=== PATIENT | female | born 1955 | race Caucasian/White ===

== ENCOUNTER 2017-04-04 06:35 | Inpatient (IN) | payer OTHER ==
[~2017-04-04] VITALS: Ht 160 cm; Wt 68.2 kg
[2017-04-04] VITALS (30 sets, daily range): BP systolic 133–160; BP diastolic 68–87; PULSE 58–89; RESP 12–21; Ht 160 cm; Wt 68.2 kg
[2017-04-04] MEDS ORDERED: ONDANSETRON 4 MG INJ ONE (07:00)
[2017-04-04] MEDS ORDERED: LIDOCAINE 2% (SDV) 5 ML INJ ONE (07:00)
[2017-04-04] MEDS ORDERED: PROPOFOL 20 ML ONE (07:42)
--- NOTE | 2017-04-04 07:55 | HPN ---
Date/Time of Note Date/Time of Note DATE: 04/04/17 TIME: 07:55 Interval H&P Admission Note Pt. seen H&P reviewed: No system changes AUNDREA ALEXANDRE MD Apr 04, 2017 07:55
[2017-04-04] MEDS ORDERED: MIDAZOLAM 1 MG/ML 2 ML INJ ONE (08:05)
[2017-04-04] MEDS ORDERED: TRANEXAMIC ACID 1,000 MG in SOD CHLORIDE 0.9% 100 ML IV ONE (08:30)
[2017-04-04] MEDS ORDERED: CEFAZOLIN 1 GM INJ ONE (08:31)
[2017-04-04] MEDS ORDERED: POLYMYXIN/BACITRACIN 1L IRRIG IRR ONE (09:13)
[2017-04-04] MEDS ORDERED: DEXAMETHASONE 4 MG/ML 1 ML INJ ONE (09:15)
[2017-04-04] MEDS ORDERED: GLYCOPYRROLATE 0.4 MG INJ ONE (10:16)
[2017-04-04] MEDS ORDERED: NEOSTIGMINE 3 MG/3 ML SYRINGE ONE (10:16)
[2017-04-04] MEDS ORDERED: NALOXONE (0.4 MG/ML) INJ IV PRN ×2 (10:30→11:00)
[2017-04-04] MEDS ORDERED: FENTAnyl 50 MCG/ML VIAL IV PRN ×3 (10:30)
[2017-04-04] MEDS ORDERED: EPHEDrine SULFATE 50 MG/5 ML SYG IV PRN (10:30)
[2017-04-04] MEDS ORDERED: DIPHENHYDRAMINE 50 MG INJ IV PRN ×2 (10:30)
[2017-04-04] MEDS ORDERED: MEPERIDINE 25 MG INJ IV PRN (10:30)
[2017-04-04] MEDS ORDERED: hydrALAzine 20 MG INJ IV PRN ×2 (10:30→12:30)
[2017-04-04] MEDS ORDERED: HYDROmorphONE (0.2 MG/ML) 10ML SYG IV PRN ×3 (10:30)
[2017-04-04] MEDS ORDERED: OXYCODONE/ACETAMINOPHEN (5/325) TAB PO PRN ×3 (10:30)
[2017-04-04] MEDS ORDERED: ONDANSETRON 4 MG INJ IV PRN ×2 (10:30)
[2017-04-04] MEDS ORDERED: LABETALOL HCL 20MG INJ IV PRN (10:30)
[2017-04-04] MEDS ORDERED: NA PHOSPHATE/BIPHOS 133 ML ENEMA PR PRN (11:00)
[2017-04-04] MEDS ORDERED: oxyCODONE 5 MG TAB PO PRN ×2 (11:00)
[2017-04-04] MEDS ORDERED: DIPHENHYDRAMINE 50 MG INJ IM PRN (11:00)
[2017-04-04] MEDS ORDERED: DOCUSATE SODIUM 100 MG CAP PO ONE (11:00)
[2017-04-04] MEDS ORDERED: MAGNESIUM HYDROXIDE 30ML CUP PO PRN (11:00)
[2017-04-04] MEDS ORDERED: ASPIRIN (EC) 325 MG TAB PO ONE (11:00)
[2017-04-04] MEDS: ONDANSETRON 4 MG INJ IV SCH ×3 (11:03→23:17)
[2017-04-04] MEDS ORDERED: CEFAZOLIN 1 GM/50 ML (PMX) 50 ML IVPB ONE (11:08)
[2017-04-04] MEDS: HYDROmorphONE 0.2 MG/ML PCA IV SCH (11:16)
[2017-04-04] MEDS: CEFAZOLIN 1 GM/50 ML (PMX) 50 ML IVPB SCH ×2 (11:23→19:46)
--- NOTE | 2017-04-04 11:52 | OPR ---
DATE OF OPERATION: 04/04/2017 PREOPERATIVE DIAGNOSIS: Right knee osteoarthritis. POSTOPERATIVE DIAGNOSIS: Right knee osteoarthritis. OPERATION PERFORMED: Right total knee replacement. SURGEON: John Alexandre MD ANESTHESIA: General endotracheal anesthesia with an adductor canal block. ANESTHESIOLOGIST: Dr. Nolasco ESTIMATED BLOOD LOSS: 100 mL. INDICATIONS FOR PROCEDURE: Ms. Gabriel Regan is a 61-year-old female who has undergone a successful l eft total knee replacement. She has continued to have pain on the right side. She has failed nonop erative treatment and now presents for the above-listed elective procedure. The risks and benefits were discussed, risks including, but not limited to infection, bleeding, blood clots, nerve damage, blood vessel damage, fracture, knee stiffness along with other medical, anesthetic, and surgical com plications were discussed. Informed consent was obtained. DESCRIPTION OF PROCEDURE: The patient's correct extremity was identified in the preoperative area. She was brought back to the operating room where she had preoperative antibiotics. She had a spina l anesthetic. She had general endotracheal anesthesia. Right lower extremity was prepped and drape d in a standard sterile manner. Time out was performed. I then used an Esmarch to exsanguinate the extremity. Tranexamic acid had previously been administered. Then performed a time out. I then m nathaniel an anterior incision for approach to the knee. I went through skin and subcutaneous tissue, mad e a medial parapatellar arthrotomy. I then flexed the knee and made an entry hole in the distal fem ur, took off the distal 8 mm using intramedullary alignment phill. I then used my secondary cutting g uide, marked it at 3 degrees of external rotation. I then made anterior, posterior chamfer cuts wit h a size 2 cutting guide. At this point, I turned my attention to the tibia, used an extramedullary alignment guide, lined it with the anterior crest of the tibia, put my tibial cutting guide at the appropriate level, made my tibial cut. I then checked the flexion and extension gaps which were sym metric with a 13 block. I then trialed using a size 2 tibia, size 2 femur, and a 13 insert. The kn ee went from full extension to full flexion. I did take off medial osteophytes and released some of the MCL off the proximal medial tibia to balance the knee. At this point, I turned my attention to the patella using ____ type cutting guide, cut the patella at the appropriate thickness. I then us ed a 31 symmetric patella. I made the peg holes. I then trialed the patella. The patella tracked well without any external pressure. I then made the peg holes through the femoral trial. I marked the rotation of the tibia. Coinciding with the medial one third of the tibial tubercle. I then pun ched the tibia. I then took out all trial instruments and components, thoroughly irrigated the bony surfaces, cemented a size 2 tibia, size 2 femur. A trial 13 insert was placed as well as the 31 sy mmetric patella was implanted. All implants used were [place] [employer] implants. At this point, o nce the cement hardened, I took out my trial insert, let down the tourniquet, obtained adequate hemo stasis. I then impacted a 13 all poly insert until it locked into place. The knee had full range o f motion and the knee was well balanced in full extension, mid flexion, and full flexion. At this p oint, I put a deep drain in for drainage. I closed the medial parapatellar arthrotomy with interrup kamille #1 Vicryl, subcutaneous tissue was closed with 2-0 Vicryl, the skin with henry. Dry sterile d ressings were applied. The patient was then extubated and transported to recovery in stable conditi on. Her foot was warm with a 2+ dorsalis pedis pulse at the end of the case. Dictated By: JOHN ALEXANDRE MD, RA/AYDEN Conf#: [id number] DID#: [id number]
--- NOTE | 2017-04-04 12:45 | RADRPT ---
PROCEDURE: Right knee radiographs. CLINICAL INDICATION: Right knee pain. Postop. TECHNIQUE: Two views. Frontal and lateral. COMPARISON: No prior studies are available for comparison. FINDINGS: There is a total right knee arthroplasty which appears satisfactory. Anterior skin henry and surg ical drains are noted. There is gas in the soft tissues from the recent surgery. There is no fracture or dislocation. There is no lytic or blastic lesion. IMPRESSION: 1. Satisfactory postoperative appearance of the right knee. RPTAT: QQ .Kushal Oreilly MD, MD Date Time Electronically viewed and signed by .Kushal Oreilly MD, MD on 04/04/2017 12:45 .R/
--- NOTE | 2017-04-04 12:52 | HP ---
DATE OF ADMISSION: 04/04/2017 HISTORY OF PRESENT ILLNESS: The patient is a 61-year-old female with a history of degenerative join t disease, status post left knee total replacement, and a history of left breast mastectomy. The pa kristen continues to have pain in the right knee and was evaluated by Dr. Diehl in surgical consul tation. The patient was brought to the hospital and underwent a right total knee replacement for de generative joint disease of the right knee. Postoperatively the patient experienced significant kailey n and the patient will be admitted for further evaluation and management. PAST MEDICAL HISTORY: Patient denies having any cardiac disease or diabetes. PAST SURGICAL HISTORY: Status post total left knee replacement by Dr. Diehl and status post lef t breast mastectomy. FAMILY HISTORY: Noncontributory. SOCIAL HISTORY: The patient lives at home with the family. The patient denies any tobacco use, den ies any alcohol use, denies any illicit drug use. ALLERGIES: NO KNOWN ALLERGIES. MEDICATIONS ON ADMISSION: No active prescriptions. REVIEW OF SYSTEMS: A 12-point review of systems is negative unless mentioned in the HPI. PHYSICAL ASSESSMENT: GENERAL: Well-developed, well-nourished female, in no acute distress. VITAL SIGNS: Temperature is 98.5, pulse is 64, blood pressure 142/72, respiratory rate 16, oxygen s aturation 99% on room air. HEENT: Head is atraumatic, normocephalic. Pupils are equal, round, reactive to light and accommoda tion. Oral mucosa is pink and moist. NECK: Supple. No cervical lymphadenopathy, no thyromegaly. CHEST: Clear bilaterally. No rhonchi, wheezes or rales noted. CARDIOVASCULAR: Normal S1, S2. No murmurs, gallops or rubs noted. ABDOMEN: Round, soft, nondistended, nontender. Bowel sounds present. There is no guarding or rebo und tenderness. EXTREMITIES: No edema, clubbing or cyanosis. Pulses equal bilaterally at 2+. SKIN: There is no rash or petechiae noted. NEUROLOGIC: The patient is status post right knee surgery, with a dry, clean and intact dressing wi th a drain. Pulses are present bilaterally at 2+. NEUROLOGIC: Patient is awake, alert and oriented x4. No focal deficits noted. ASSESSMENT AND PLAN: 1. Right knee osteoarthritis, status post right total knee replacement. The patient received intra operative antibiotics. Continue Roxicodone and Dilaudid p.r.n. for pain, Zofran p.r.n. for nausea. Will continue the patient on aspirin. 2. Will continue Protonix for peptic ulcer disease prophylaxis and sequential compression device fo r deep venous thrombosis prophylaxis. 3. Continue to follow up orthopedic surgery recommendations. 4. CBC and CMP tomorrow. Further recommendations based on clinical course. Plan of care discussed with Dr. Mathis. Dictated By: DANDRE HENRY MEAL ATTENDANT for BETO MATHIS MD SR/NTS Conf#: [id number] DID#: [id number]
[2017-04-04] MEDS: DEXTROSE 5%-LR 1,000 ML IV SCH ×2 (14:23→23:03)
[2017-04-04] MEDS ORDERED: METOCLOPRAMIDE 10 MG INJ IV PRN (19:00)
[2017-04-04] MEDS: KETOROLAC 30 MG INJ IV PRN (19:46)
[2017-04-04] MEDS: TRIMETHOBENZAMIDE 100 MG/ML VIAL IM PRN (19:47)
[2017-04-05] VITALS: BP 145/76; RESP 18
[2017-04-05] MEDS: KETOROLAC 30 MG INJ IV PRN ×2 (02:38→20:55)
[2017-04-05] MEDS: DEXTROSE 5%-LR 1,000 ML IV SCH ×2 (02:38→17:26)
[2017-04-05 04:00] VITALS: BP 138/78; PULSE 81; RESP 17
[2017-04-05] MEDS: CEFAZOLIN 1 GM/50 ML (PMX) 50 ML IVPB SCH (04:22)
[2017-04-05] MEDS: ONDANSETRON 4 MG INJ IV SCH (04:23)
[2017-04-05 05:03] LABS: ADD SCAN DIFF NO
[2017-04-05 05:15] LABS: BASOPHILS % 0.1 % (0.0-2.0); HEMATOCRIT 37.4 % (37.0-47.0); HEMOGLOBIN 12.7 g/dl (12.0-16.0); LYMPHOCYTES # 0.9 10^3/ul (0.8-2.9); LYMPHOCYTES % 7.6 % (15.0-51.0); MEAN CORPUSCULAR HEMOGLOBIN 26.6 pg (29.0-33.0); MEAN CORPUSCULAR VOLUME 78.2 fl (82.0-101.0); MEAN PLATELET VOLUME 8.5 fl (7.4-10.4); MONOCYTE # 0.4 10^3/ul (0.3-0.9); MONOCYTES % 3.3 % (0.0-11.0); NEUTROPHIL # 10.4 10^3/ul (1.6-7.5); NEUTROPHILS % 88.6 % (39.0-77.0); PLATELET COUNT 263 10^3/UL (140-415); RED BLOOD COUNT 4.78 10^6/ul (4.20-5.40); RED CELL DISTRIBUTION WIDTH 14.6 % (11.5-14.5); WHITE BLOOD COUNT 11.7 10^3/ul (4.8-10.8)
[2017-04-05 05:28] LABS: INR 1.05; PROTIME 13.7 Sec (12.2-14.2); PT RATIO 1.1
[2017-04-05 05:34] LABS: CALCIUM 9.5 mg/dl (8.4-10.2); CREATININE 0.49 mg/dl (0.44-1.00); POTASSIUM 4.2 mmol/L (3.5-5.1)
[2017-04-05] MEDS: ASPIRIN (EC) 325 MG TAB PO SCH (09:00)
[2017-04-05] MEDS: DOCUSATE SODIUM 100 MG CAP PO SCH ×2 (09:00→20:55)
[2017-04-05 09:32] VITALS: BP 164/73; RESP 18
[2017-04-05] MEDS: HYDROmorphONE 0.2 MG/ML PCA IV SCH (11:54)
--- NOTE | 2017-04-05 11:59 | PN ---
Date/Time of Note Date/Time of Note DATE: 04/05/17 TIME: 11:58 Assessment/Plan Lines/Catheters IV Catheter Type (from Nrsg): Peripheral IV Andrew in Place (from Nrsg): Yes Assessment/Plan Assessment/Plan s/p Right Total Knee Replacement POD 1 Stable CPM, Gait training with PT Aspirin, SCD's for DVT prophylaxis SNF eval D/c Andrew Change Dressing tomorrow Subjective 24 Hr Interval Summary Mild pain Exam/Review of Systems Vital Signs Vitals Vital Signs Date Time Temp Pulse Resp B/P Pulse Ox O2 Delivery O2 Flow Rate FiO2 04/05/17 09:32 98.1 72 18 164/73 99 04/05/17 04:00 Room Air 04/04/17 18:00 2.0 Intake and Output 04/04/17 04/04/17 04/05/17 15:00 23:00 07:00 Intake Total 1100 ml 600 ml 1730 ml Output Total 400 ml 950 ml 1300 ml Balance 700 ml -350 ml 430 ml Exam Free Text/Dictation Right Knee Dressing c/d/i Calf soft and nontender Foot warm and well perfused Intact motor and sensory function in toes Results Result Diagram: 04/05/17 0448 04/05/17 0448 AUNDREA ALEXANDRE MD Apr 05, 2017 11:59
[2017-04-05] MEDS: TRIMETHOBENZAMIDE 100 MG/ML VIAL IM PRN (12:02)
[2017-04-05 16:00] VITALS: BP 140/78; PULSE 82; RESP 17
--- NOTE | 2017-04-05 20:45 | PN ---
Date/Time of Note Date/Time of Note DATE: 04/05/17 TIME: 17:40 Assessment/Plan Lines/Catheters IV Catheter Type (from Nrs): Peripheral IV Urinary Cath still in place: Yes Assessment/Plan Assessment/Plan 1. Right knee osteoarthritis, status post right total knee replacement. The patient received intraoperative antibiotics. Continue Roxicodone and Dilaudid p.r.n. for pain, Zofran p.r.n. for nausea. Will continue the patient on aspirin. 2. Will continue Protonix for peptic ulcer disease prophylaxis and sequential compression device for deep venous thrombosis prophylaxis. 3. Continue to follow up orthopedic surgery recommendations. Further recommendations based on clinical course. Plan of care discussed with Dr. Sweeney. Exam/Review of Systems Vital Signs Vitals Vital Signs Date Time Temp Pulse Resp B/P Pulse Ox O2 Delivery O2 Flow Rate FiO2 04/05/17 11:54 18 04/05/17 09:32 98.1 72 164/73 99 04/05/17 04:00 Room Air 04/04/17 18:00 2.0 Intake and Output 04/04/17 04/04/17 04/05/17 15:00 23:00 07:00 Intake Total 1100 ml 600 ml 1730 ml Output Total 400 ml 950 ml 1300 ml Balance 700 ml -350 ml 430 ml Exam Constitutional: alert, well developed Respiratory: clear to auscultation, normal air movement Cardiovascular: nl pulses, regular rate and rhythm Gastrointestinal: non-tender, soft Musculoskeletal: other Extremities: normal pulses Results Result Diagram: 04/05/17 0448 04/05/17 0448 Results 24 hrs Laboratory Tests Test 04/05/17 04:48 White Blood Count 11.7 H Red Blood Count 4.78 Hemoglobin 12.7 Hematocrit 37.4 Mean Corpuscular Volume 78.2 L Mean Corpuscular Hemoglobin 26.6 L Mean Corpuscular Hemoglobin Concent 34.0 Red Cell Distribution Width 14.6 H Platelet Count 263 Mean Platelet Volume 8.5 Neutrophils % 88.6 H Lymphocytes % 7.6 L Monocytes % 3.3 Eosinophils % 0.0 Basophils % 0.1 Nucleated Red Blood Cells % 0.0 Neutrophils # 10.4 H Lymphocytes # 0.9 Monocytes # 0.4 Eosinophils # 0.0 Basophils # 0.0 Nucleated Red Blood Cells # 0.0 Prothrombin Time 13.7 Prothrombin Time Ratio 1.1 INR International Normalized Ratio 1.05 Sodium Level 135 Potassium Level 4.2 Chloride Level 100 Carbon Dioxide Level 26 Anion Gap 13 Blood Urea Nitrogen 8 Creatinine 0.49 Glucose Level 134 Calcium Level 9.5 Medications Medications Current Medications Naloxone HCl (Narcan) 0.2 mg PRN PRN IV DECREASED REPIRATORY RATE; Start at 10:30 Hydromorphone HCl (Dilaudid APPLICATIONS MANAGER) Q4PCA IV Last administered on 04/05/17 11:54 ; Admin Dose 6 MG; Start 04/04/17 at 10:30; Stop 04/07/17 at 06:00 Oxycodone/ Acetaminophen (Percocet (5/ 325)) 1 tab Q4H PRN PO PAIN LEVEL 1-5; Start 04/04/17 at 10:30 Oxycodone/ Acetaminophen (Percocet (5/ 325)) 2 tab Q4H PRN PO PAIN LEVEL 6-10; Start 04/04/17 at 10:30 Ketorolac Tromethamine (Toradol) 30 mg Q6H PRN IV PAIN Last administered on 02:38; Admin Dose 30 MG; Start 04/04/17 at 10:30; Stop 04/07/17 at 10:29 Ondansetron HCl (Zofran Inj) 4 mg Q6H PRN IV NAUSEA AND/OR VOMITING; Start at 10:30 Diphenhydramine HCl (Benadryl) 25 mg Q6H PRN IV ITCHING; Start 04/04/17 at 10: 30 Miscellaneous Information 1. Discontinue APPLICATIONS MANAGER... APPLICATIONS MANAGER IV ; Start 04/04/17 at 10:30 Miscellaneous Information 1. Discontinue APPLICATIONS MANAGER... APPLICATIONS MANAGER IV ; Start 04/04/17 at 10:30 Dextrose/Lactated Ringer's (D5-Lr) 1,000 ml @ 80 mls/hr [id number] IV Last administered on 04/05/17 17:26; Admin Dose 80 MLS/HR; Start 04/04/17 at 10:33 Oxycodone HCl (Roxicodone) 20 mg Q3H PRN PO PAIN LEVEL 8-10; Start 04/04/17 at 11:00 Oxycodone HCl (Roxicodone) 10 mg Q3H PRN PO PAIN LEVEL 4-7; Start 04/04/17 at 11:00 Oxycodone HCl (Roxicodone) 5 mg Q3H PRN PO PAIN LEVEL 1-3; Start 04/04/17 at 11 :00 Aspirin (Ecotrin) 325 mg QAM PO Last administered on 04/05/17 09:00; Admin Dose 325 MG; Start 04/05/17 at 09:00 Pantoprazole (Protonix Tab) 40 mg DAILY@06 PO ; Start 04/06/17 at 06:00 Docusate Sodium (Colace) 200 mg BID PO Last administered on 04/05/17 09:00; Admin Dose 200 MG; Start 04/05/17 at 09:00; Stop 04/08/17 at 08:59 Senna/Docusate Sodium (Senokot-S) 2 tab BID PRN PO CONSTIPATION; Start at 11:00 Magnesium Hydroxide (Milk Of Mag) 30 ml HS PRN PO CONSTIPATION; Start 04/04/17 at 11:00 Sodium Biphosphate/ Sodium Phosphate (Fleet Enema) 133 ml DAILY PRN [place] CONSTIPATION; Start 04/04/17 at 11:00 Diphenhydramine HCl (Benadryl) 25 mg Q4H PRN IM ITCHING OR RASH; Start at 11:00 Naloxone HCl (Narcan) 0.2 mg Q2M PRN IV DECREASED REPIRATORY RATE; Start at 11:00 Hydralazine HCl (Apresoline) 10 mg Q6H PRN IV SBP>170; Start 04/04/17 at 12:30 Metoclopramide HCl (Reglan) 10 mg Q6H PRN IV nausea/vomiting; Start 04/04/17 at 19:00 Trimethobenzamide HCl (Tigan) 200 mg Q6H PRN IM NAUSEA AND/OR VOMITING Last administered on 04/05/17 12:02; Admin Dose 200 MG; Start 04/04/17 at 19:30 HEMAL PEREIRA Apr 05, 2017 17:42
[2017-04-05] MEDS: oxyCODONE 5 MG TAB PO PRN (21:05)
[2017-04-05 21:29] VITALS: BP 146/74; RESP 20
[2017-04-06] MEDS: PANTOPRAZOLE (EC) 40 MG TAB PO SCH (06:09)
[2017-04-06] MEDS: oxyCODONE 5 MG TAB PO PRN ×5 (06:09→22:37)
[2017-04-06 06:42] LABS: ADD SCAN DIFF NO
[2017-04-06 06:58] LABS: BASOPHILS % 0.2 % (0.0-2.0); EOSINOPHILS # 0.1 10^3/ul (0.0-0.5); EOSINOPHILS % 0.6 % (0.0-7.0); HEMATOCRIT 35.2 % (37.0-47.0); HEMOGLOBIN 11.7 g/dl (12.0-16.0); LYMPHOCYTES # 1.9 10^3/ul (0.8-2.9); LYMPHOCYTES % 22.3 % (15.0-51.0); MEAN CORPUSCULAR HEMOGLOBIN 26.5 pg (29.0-33.0); MEAN CORPUSCULAR HGB CONC 33.2 g/dl (32.0-37.0); MEAN CORPUSCULAR VOLUME 79.8 fl (82.0-101.0); MEAN PLATELET VOLUME 9.3 fl (7.4-10.4); MONOCYTE # 0.5 10^3/ul (0.3-0.9); NEUTROPHIL # 6.1 10^3/ul (1.6-7.5); NEUTROPHILS % 70.4 % (39.0-77.0); PLATELET COUNT 241 10^3/UL (140-415); RED BLOOD COUNT 4.41 10^6/ul (4.20-5.40); RED CELL DISTRIBUTION WIDTH 14.8 % (11.5-14.5); WHITE BLOOD COUNT 8.6 10^3/ul (4.8-10.8)
[2017-04-06 06:59] LABS: CALCIUM 8.6 mg/dl (8.4-10.2); CREATININE 0.56 mg/dl (0.44-1.00); POTASSIUM 3.6 mmol/L (3.5-5.1)
[2017-04-06 07:01] LABS: INR 1.08; PT RATIO 1.1
[2017-04-06] MEDS: ASPIRIN (EC) 325 MG TAB PO SCH (08:20)
[2017-04-06] MEDS: DOCUSATE SODIUM 100 MG CAP PO SCH ×2 (08:20→20:17)
[2017-04-06 08:26] VITALS: BP 136/66; RESP 20
[2017-04-06] MEDS: DEXTROSE 5%-LR 1,000 ML IV SCH (11:38)
--- NOTE | 2017-04-06 16:14 | PN ---
Date/Time of Note Date/Time of Note DATE: 04/06/17 TIME: 16:11 Assessment/Plan VTE Prophylaxis VTE Prophylaxis Intervention: other Lines/Catheters IV Catheter Type (from Nrs): Saline Lock Urinary Cath still in place: No Assessment/Plan Assessment/Plan 1. Right knee osteoarthritis, status post right total knee replacement. The patient received intraoperative antibiotics. Continue Roxicodone and Dilaudid p.r.n. for pain, Zofran p.r.n. for nausea. Will continue the patient on aspirin. 2. Will continue Protonix for peptic ulcer disease prophylaxis and sequential compression device for deep venous thrombosis prophylaxis. 3. Continue to follow up orthopedic surgery recommendations. Further recommendations based on clinical course. Plan of care discussed with Dr. Sweeney. Subjective 24 Hr Interval Summary Respiratory: no complaints Cardiovascular: no complaints Gastrointestinal: no complaints Genitourinary: no complaints Musculoskeletal: no complaints Skin: no complaints Exam/Review of Systems Vital Signs Vitals Vital Signs Date Time Temp Pulse Resp B/P Pulse Ox O2 Delivery O2 Flow Rate FiO2 04/06/17 08:26 98.5 95 20 136/66 94 04/05/17 04:00 Room Air 04/04/17 18:00 2.0 Intake and Output 04/05/17 04/05/17 04/06/17 15:00 23:00 07:00 Intake Total 1200 ml 350 ml Output Total 500 ml 1000 ml Balance 700 ml -650 ml Exam Constitutional: alert, oriented Neck: supple Respiratory: clear to auscultation, normal air movement Cardiovascular: nl pulses, regular rate and rhythm Gastrointestinal: non-tender, soft Musculoskeletal: other Extremities: normal pulses Neurological: nl mental status, nl speech Lymph: nontender Results Result Diagram: 04/06/17 0508 04/06/17 0508 Results 24 hrs Laboratory Tests Test 04/06/17 05:08 04/06/17 07:14 White Blood Count 8.6 # Red Blood Count 4.41 Hemoglobin 11.7 L Hematocrit 35.2 L Mean Corpuscular Volume 79.8 L Mean Corpuscular Hemoglobin 26.5 L Mean Corpuscular Hemoglobin Concent 33.2 Red Cell Distribution Width 14.8 H Platelet Count 241 Mean Platelet Volume 9.3 Neutrophils % 70.4 Lymphocytes % 22.3 Monocytes % 6.0 Eosinophils % 0.6 Basophils % 0.2 Nucleated Red Blood Cells % 0.0 Neutrophils # 6.1 Lymphocytes # 1.9 Monocytes # 0.5 Eosinophils # 0.1 Basophils # 0.0 Nucleated Red Blood Cells # 0.0 Prothrombin Time 14.0 Prothrombin Time Ratio 1.1 INR International Normalized Ratio 1.08 Sodium Level 133 L Potassium Level 3.6 Chloride Level 98 Carbon Dioxide Level 29 Anion Gap 10 Blood Urea Nitrogen 7 Creatinine 0.56 Glucose Level 101 Calcium Level 8.6 Lab Scanned Report REFERENCE LAB Medications Medications Current Medications Naloxone HCl (Narcan) 0.2 mg PRN PRN IV DECREASED REPIRATORY RATE; Start at 10:30 Oxycodone/ Acetaminophen (Percocet (5/ 325)) 1 tab Q4H PRN PO PAIN LEVEL 1-5; Start 04/04/17 at 10:30 Oxycodone/ Acetaminophen (Percocet (5/ 325)) 2 tab Q4H PRN PO PAIN LEVEL 6-10; Start 04/04/17 at 10:30 Ketorolac Tromethamine (Toradol) 30 mg Q6H PRN IV PAIN Last administered on 20:55; Admin Dose 30 MG; Start 04/04/17 at 10:30; Stop 04/07/17 at 10:29 Ondansetron HCl (Zofran Inj) 4 mg Q6H PRN IV NAUSEA AND/OR VOMITING; Start at 10:30 Diphenhydramine HCl 25 mg 25 mg Q6H PRN IV ITCHING; Start 04/04/17 at 10:30 Dextrose/Lactated Ringer's (D5-Lr) 1,000 ml @ 80 mls/hr [id number] IV Last administered on 04/05/17 17:26; Admin Dose 80 MLS/HR; Start 04/04/17 at 10:33 Oxycodone HCl (Roxicodone) 20 mg Q3H PRN PO PAIN LEVEL 8-10; Start 04/04/17 at 11:00 Oxycodone HCl (Roxicodone) 10 mg Q3H PRN PO PAIN LEVEL 4-7 Last administered on 04/06/17 12:51; Admin Dose 10 MG; Start 04/04/17 at 11:00 Oxycodone HCl (Roxicodone) 5 mg Q3H PRN PO PAIN LEVEL 1-3; Start 04/04/17 at 11 :00 Aspirin (Ecotrin) 325 mg QAM PO Last administered on 04/06/17 08:20; Admin Dose 325 MG; Start 04/05/17 at 09:00 Pantoprazole (Protonix Tab) 40 mg DAILY@06 PO Last administered on 04/06/17 06 :09; Admin Dose 40 MG; Start 04/06/17 at 06:00 Docusate Sodium (Colace) 200 mg BID PO Last administered on 04/06/17 08:20; Admin Dose 200 MG; Start 04/05/17 at 09:00; Stop 04/08/17 at 08:59 Senna/Docusate Sodium (Senokot-S) 2 tab BID PRN PO CONSTIPATION; Start at 11:00 Magnesium Hydroxide (Milk Of Mag) 30 ml HS PRN PO CONSTIPATION; Start 04/04/17 at 11:00 Sodium Biphosphate/ Sodium Phosphate (Fleet Enema) 133 ml DAILY PRN [place] CONSTIPATION; Start 04/04/17 at 11:00 Diphenhydramine HCl (Benadryl) 25 mg Q4H PRN IM ITCHING OR RASH; Start at 11:00 Naloxone HCl (Narcan) 0.2 mg Q2M PRN IV DECREASED REPIRATORY RATE; Start at 11:00 Hydralazine HCl (Apresoline) 10 mg Q6H PRN IV SBP>170; Start 04/04/17 at 12:30 Metoclopramide HCl (Reglan) 10 mg Q6H PRN IV nausea/vomiting; Start 04/04/17 at 19:00 Trimethobenzamide HCl (Tigan) 200 mg Q6H PRN IM NAUSEA AND/OR VOMITING Last administered on 04/05/17 12:02; Admin Dose 200 MG; Start 04/04/17 at 19:30 HEMAL PEREIRA Apr 06, 2017 16:13
[2017-04-06 19:21] VITALS: BP 168/78; RESP 18
[2017-04-06 21:13] VITALS: BP 156/87; PULSE 97
[2017-04-07] MEDS: DEXTROSE 5%-LR 1,000 ML IV SCH (01:03)
[2017-04-07] MEDS: PANTOPRAZOLE (EC) 40 MG TAB PO SCH (06:01)
[2017-04-07] MEDS: SENNA/DOCUSATE NA (8.6MG/50MG) TAB PO PRN (06:02)
[2017-04-07 06:37] LABS: ADD SCAN DIFF NO
[2017-04-07 06:43] LABS: BASOPHILS % 0.2 % (0.0-2.0); EOSINOPHILS # 0.1 10^3/ul (0.0-0.5); HEMATOCRIT 35.6 % (37.0-47.0); LYMPHOCYTES # 1.9 10^3/ul (0.8-2.9); MEAN CORPUSCULAR HEMOGLOBIN 26.7 pg (29.0-33.0); MEAN CORPUSCULAR HGB CONC 33.7 g/dl (32.0-37.0); MEAN CORPUSCULAR VOLUME 79.1 fl (82.0-101.0); MEAN PLATELET VOLUME 8.8 fl (7.4-10.4); MONOCYTE # 0.5 10^3/ul (0.3-0.9); MONOCYTES % 5.9 % (0.0-11.0); NEUTROPHIL # 5.7 10^3/ul (1.6-7.5); NEUTROPHILS % 69.7 % (39.0-77.0); PLATELET COUNT 254 10^3/UL (140-415); RED CELL DISTRIBUTION WIDTH 14.5 % (11.5-14.5); WHITE BLOOD COUNT 8.2 10^3/ul (4.8-10.8)
[2017-04-07 07:34] LABS: CALCIUM 8.6 mg/dl (8.4-10.2); CREATININE 0.55 mg/dl (0.44-1.00); POTASSIUM 3.7 mmol/L (3.5-5.1)
[2017-04-07 07:56] VITALS: BP 133/68; RESP 19
[2017-04-07] MEDS: DOCUSATE SODIUM 100 MG CAP PO SCH ×2 (09:19→20:03)
[2017-04-07] MEDS: OXYCODONE/ACETAMINOPHEN (5/325) TAB PO PRN ×3 (09:20→19:56)
[2017-04-07] MEDS: ASPIRIN (EC) 325 MG TAB PO SCH (09:20)
--- NOTE | 2017-04-07 10:36 | PN ---
Date/Time of Note Date/Time of Note DATE: 04/07/17 TIME: 10:34 Assessment/Plan Lines/Catheters IV Catheter Type (from Nrsg): Saline Lock Andrew in Place (from Nrsg): No Assessment/Plan Assessment/Plan Continued mild tenderness juve posterior calf and knee will order ultrasound to r/o DVT Continue PT for gait training and CPM Aspirin and SCD's for DVT prophylaxis Discharge to home today Subjective 24 Hr Interval Summary Ambulated with PT. Continued pain. Exam/Review of Systems Vital Signs Vitals Vital Signs Date Time Temp Pulse Resp B/P Pulse Ox O2 Delivery O2 Flow Rate FiO2 04/07/17 07:56 98.2 87 19 133/68 96 04/05/17 04:00 Room Air 04/04/17 18:00 2.0 Intake and Output 04/06/17 04/06/17 04/07/17 15:00 23:00 07:00 Intake Total 1420 ml 200 ml Balance 1420 ml 200 ml Exam Free Text/Dictation Right LE Mild calf swelling Tend posterior knee Dressing c/d/i Intact motor and sensory function in toes Results Result Diagram: 04/07/17 0453 04/07/17 0453 AUNDREA ALEXANDRE MD Apr 07, 2017 10:36
--- NOTE | 2017-04-07 10:38 | PDOCDIS ---
Discharge Instructions CONDITION Patient Condition: Good HOME CARE INSTRUCTIONS: Diet Instructions: RegularSpecial Diet: VEGAN ACTIVITY: Activity Restrictions: No Restrictions Bathing Restrictions: Sponge Bath FOLLOW UP/APPOINTMENTS Appointments Dr. Aundrea Alexandre in 2 weeks OTHER ORDERS: Other Orders: WBAT R LE Continue Aspirin 325 mg po qday for 2 weeks for DVT prophylaxis AUNDREA ALEXANDRE MD Apr 07, 2017 10:38
--- NOTE | 2017-04-07 12:13 | RADRPT ---
PROCEDURE: US DVT. CLINICAL INDICATION: Status post right total knee replacement. Swelling. TECHNIQUE: Multiple longitudinal and transverse images of the right lower extremity veins were obt ained with chong scale and color Doppler imaging. 2D grayscale measurements with compression, color Doppler flow, and augmentation was performed. The calf veins were interrogated as well. COMPARISON: No prior studies are available for comparison. FINDINGS: The right common femoral, superficial femoral and popliteal veins are normally compressible througho ut. Color flow demonstrates normal filling of the vessel. Normal waveforms are visualized and ther e is normal response to augmentation. IMPRESSION: 1. No evidence of a deep vein thrombosis involving the right lower extremity. RPTAT: [facility] Physician Arturo Date Time Electronically viewed and signed by Physician Arturo on 04/07/2017 12:13 MARIELA/
--- NOTE | 2017-04-07 16:13 | PN ---
Date/Time of Note Date/Time of Note DATE: 04/07/17 TIME: 16:10 Assessment/Plan VTE Prophylaxis VTE Prophylaxis Intervention: SCD's Lines/Catheters IV [facility]ter Type (from [facility]): Peripheral IV Urinary Cath still in place: No Assessment/Plan Chief Complaint/Hosp Course Patient's complains of significant amount of pain, awaits for cancer case management arrange for equipment delivery. ASSESSMENT AND PLAN: - Right knee osteoarthritis, status post right total knee replacement. Continue Roxicodone and Percocet, continue the patient on aspirin. Continue physical therapy and surgical recommendation. - Hyponatremia, will stop IV fluids with dextrose and LR. Continue current diet. BMP tomorrow. Further recommendations based on clinical course. Plan of care discussed with Dr. Sweeney. Problems: Exam/Review of Systems Vital Signs Vitals Vital Signs Date Time Temp Pulse Resp B/P Pulse Ox O2 Delivery O2 Flow Rate FiO2 04/07/17 07:56 98.2 87 19 133/68 96 04/05/17 04:00 Room Air 04/04/17 18:00 2.0 Intake and Output 04/06/17 04/06/17 04/07/17 15:00 23:00 07:00 Intake Total 1420 ml 200 ml Balance 1420 ml 200 ml Exam Constitutional: alert, oriented Head: normocephalic Neck: supple Respiratory: normal air movement Cardiovascular: nl pulses Gastrointestinal: non-tender, soft Musculoskeletal: other (Right knee status post surgery) Extremities: normal pulses Results Result Diagram: 04/07/17 0453 04/07/17 0453 Results 24 hrs Laboratory Tests Test 04/07/17 04:53 White Blood Count 8.2 Red Blood Count 4.50 Hemoglobin 12.0 Hematocrit 35.6 L Mean Corpuscular Volume 79.1 L Mean Corpuscular Hemoglobin 26.7 L Mean Corpuscular Hemoglobin Concent 33.7 Red Cell Distribution Width 14.5 Platelet Count 254 Mean Platelet Volume 8.8 Neutrophils % 69.7 Lymphocytes % 23.0 Monocytes % 5.9 Eosinophils % 1.0 Basophils % 0.2 Nucleated Red Blood Cells % 0.0 Neutrophils # 5.7 Lymphocytes # 1.9 Monocytes # 0.5 Eosinophils # 0.1 Basophils # 0.0 Nucleated Red Blood Cells # 0.0 Sodium Level 127 L Potassium Level 3.7 Chloride Level 92 L Carbon Dioxide Level 28 Anion Gap 11 Blood Urea Nitrogen 6 L Creatinine 0.55 Glucose Level 95 Calcium Level 8.6 Medications Medications Current Medications Naloxone HCl (Narcan) 0.2 mg PRN PRN IV DECREASED REPIRATORY RATE; Start at 10:30 Oxycodone/ Acetaminophen (Percocet (5/ 325)) 1 tab Q4H PRN PO PAIN LEVEL 1-5; Start 04/04/17 at 10:30 Oxycodone/ Acetaminophen (Percocet (5/ 325)) 2 tab Q4H PRN PO PAIN LEVEL 6-10 Last administered on 04/07/17 14:55; Admin Dose 2 TAB; Start 04/04/17 at 10:30 Ondansetron HCl (Zofran Inj) 4 mg Q6H PRN IV NAUSEA AND/OR VOMITING; Start at 10:30 Diphenhydramine HCl 25 mg 25 mg Q6H PRN IV ITCHING; Start 04/04/17 at 10:30 Dextrose/Lactated Ringer's (D5-Lr) 1,000 ml @ 80 mls/hr [id number] IV Last administered on 04/05/17 17:26; Admin Dose 80 MLS/HR; Start 04/04/17 at 10:33 Oxycodone HCl (Roxicodone) 20 mg Q3H PRN PO PAIN LEVEL 8-10; Start 04/04/17 at 11:00 Oxycodone HCl (Roxicodone) 10 mg Q3H PRN PO PAIN LEVEL 4-7 Last administered on 04/06/17 22:37; Admin Dose 10 MG; Start 04/04/17 at 11:00 Oxycodone HCl (Roxicodone) 5 mg Q3H PRN PO PAIN LEVEL 1-3; Start 04/04/17 at 11 :00 Aspirin (Ecotrin) 325 mg QAM PO Last administered on 04/07/17 09:20; Admin Dose 325 MG; Start 04/05/17 at 09:00 Pantoprazole (Protonix Tab) 40 mg DAILY@06 PO Last administered on 04/07/17 06 :01; Admin Dose 40 MG; Start 04/06/17 at 06:00 Docusate Sodium (Colace) 200 mg BID PO Last administered on 04/07/17 09:19; Admin Dose 200 MG; Start 04/05/17 at 09:00; Stop 04/08/17 at 08:59 Senna/Docusate Sodium (Senokot-S) 2 tab BID PRN PO CONSTIPATION Last administered on 04/07/17 06:02; Admin Dose 2 TAB; Start 04/04/17 at 11:00 Magnesium Hydroxide (Milk Of Mag) 30 ml HS PRN PO CONSTIPATION; Start 04/04/17 at 11:00 Sodium Biphosphate/ Sodium Phosphate (Fleet Enema) 133 ml DAILY PRN AL CONSTIPATION; Start 04/04/17 at 11:00 Diphenhydramine HCl (Benadryl) 25 mg Q4H PRN IM ITCHING OR RASH; Start at 11:00 Naloxone HCl (Narcan) 0.2 mg Q2M PRN IV DECREASED REPIRATORY RATE; Start at 11:00 Hydralazine HCl (Apresoline) 10 mg Q6H PRN IV SBP>170; Start 04/04/17 at 12:30 Metoclopramide HCl (Reglan) 10 mg Q6H PRN IV nausea/vomiting; Start 04/04/17 at 19:00 Trimethobenzamide HCl (Tigan) 200 mg Q6H PRN IM NAUSEA AND/OR VOMITING Last administered on 04/05/17 12:02; Admin Dose 200 MG; Start 04/04/17 at 19:30 DANDRE HENRY Apr 07, 2017 16:13
[2017-04-07 19:25] VITALS: BP 141/65; RESP 20
[2017-04-08] MEDS: OXYCODONE/ACETAMINOPHEN (5/325) TAB PO PRN (00:12)
[2017-04-08 06:04] LABS: ADD SCAN DIFF NO; BASOPHILS % 0.3 % (0.0-2.0); EOSINOPHILS # 0.2 10^3/ul (0.0-0.5); EOSINOPHILS % 2.4 % (0.0-7.0); HEMATOCRIT 36.1 % (37.0-47.0); HEMOGLOBIN 11.8 g/dl (12.0-16.0); LYMPHOCYTES # 1.5 10^3/ul (0.8-2.9); LYMPHOCYTES % 21.4 % (15.0-51.0); MEAN CORPUSCULAR HGB CONC 32.7 g/dl (32.0-37.0); MEAN CORPUSCULAR VOLUME 79.7 fl (82.0-101.0); MEAN PLATELET VOLUME 8.7 fl (7.4-10.4); MONOCYTE # 0.4 10^3/ul (0.3-0.9); MONOCYTES % 5.7 % (0.0-11.0); NEUTROPHILS % 69.8 % (39.0-77.0); PLATELET COUNT 251 10^3/UL (140-415); RED BLOOD COUNT 4.53 10^6/ul (4.20-5.40); RED CELL DISTRIBUTION WIDTH 14.4 % (11.5-14.5); WHITE BLOOD COUNT 7.2 10^3/ul (4.8-10.8)
[2017-04-08 06:19] LABS: CALCIUM 8.8 mg/dl (8.4-10.2); CREATININE 0.63 mg/dl (0.44-1.00); POTASSIUM 4.2 mmol/L (3.5-5.1)
[2017-04-08] MEDS: PANTOPRAZOLE (EC) 40 MG TAB PO SCH (06:26)
[2017-04-08 08:38] VITALS: BP 121/59; RESP 20
[2017-04-08] MEDS: ASPIRIN (EC) 325 MG TAB PO SCH (09:02)
[2017-04-08] MEDS: SENNA/DOCUSATE NA (8.6MG/50MG) TAB PO PRN (09:10)
[2017-04-08] MEDS: oxyCODONE 5 MG TAB PO PRN (13:35)
[2017-04-08] MEDS ORDERED: Oxycodone/Acetamin (5/325) PO (16:51)
[2017-04-08] MEDS ORDERED: ASPI325T32 PO (16:51)
== END 2017-04-08 19:50 | disposition home health service (06) | DRG 470 ==
LOC: REC 06:35 → MS1 14:02
PROVIDERS: ADMIT Specialist; ATTEND Specialist
PROC: 0SRC0J9 Replacement of Right Knee Joint with Synthetic Substitute, Cemented, Open Approach (ICD-10-PCS; principal; 2017-04-04 08:00)
DX: M17.11 Unilateral primary osteoarthritis, right knee (principal); E87.1 Hypo-osmolality and hyponatremia; G89.18 Other acute postprocedural pain; Z96.652 Presence of left artificial knee joint; Z79.82 Long term (current) use of aspirin
CPT/HCPCS: 73560; 80048; 85025; 85610; 87086; 88304; 88305; 88311; 93971; 97110; 97116; 97163; 97530; J0690; J1100; J1170; J1885; J2250; J2405; J2710; J3250; J7121